=== PATIENT | female | born 1960 | race Caucasian/White ===

== ENCOUNTER 2018-04-02 13:13 | Emergency (ER) | payer SELFPAY ==
[~2018-04-02] VITALS: Ht 162.6 cm; Wt 79.0 kg
[2018-04-02 15:01] LABS: CLARITY URINE CLEAR (CLEAR); COLOR URINE YELLOW (YELLOW); KETONES URINE NEGATIVE (NEGATIVE); LEUKOCYTE ESTERASE URINE NEGATIVE (NEGATIVE); NITRITE URINE NEGATIVE (NEGATIVE); OCCULT BLOOD URINE NEGATIVE (NEGATIVE); PH URINE 5.5 (4.5-8.0); PROTEIN URINE 2+ (NEGATIVE); SPECIFIC GRAVITY URINE 1.024 (1.005-1.030); UROBILINOGEN URINE 0.2 E.U./dL (0.2-1.0)
[2018-04-02] MEDS ORDERED: FAMOTIDINE 20MG/2ML VIAL IV STA (15:56)
[2018-04-02] MEDS ORDERED: SODIUM CHLORIDE 0.9% 1,000 ML IV ONE (15:56)
[2018-04-02 17:02] LABS: EOSINOPHILS % 2.7 % (0.0-5.0); HEMATOCRIT. 36.2 % (36.0-48.0); HEMOGLOBIN. 12.4 g/dL (12.0-16.0); LYMPHOCYTES % 21.7 % (20.0-50.0); MEAN CORPUSCULAR VOLUME 87.4 fL (81.0-99.0); MEAN PLATELET VOLUME 10.4 fl (7.4-10.4); MONOCYTES % 5.8 % (2.0-8.0); NEUTROPHILS % 68.8 % (40.0-76.0); PLATELET 304 x1000/uL (130-400); RED BLOOD CELL COUNT 4.15 mill/uL (4.2-5.4); RED CELL DISTRIBUTION WIDTH 13.4 % (11.6-14.6)
[2018-04-02 17:11] LABS: CHLORIDE 100 mEq/L (98-107)
[2018-04-02 17:13] LABS: PROTHROMBIN TIME 9.9 sec (9.1-11.1)
[2018-04-02] MEDS ORDERED: CEFTRIAXONE 1 G PREMIX 50 ML IV NR (17:30)
[2018-04-02 18:21] VITALS: BP 143/77
== END 2018-04-02 19:03 | disposition home or self-care (01) ==
LOC: ER 13:13
DX: N12 Tubulo-interstitial nephritis, not specified as acute or chronic (principal); E11.65 Type 2 diabetes mellitus with hyperglycemia; D25.9 Leiomyoma of uterus, unspecified; Z98.890 Other specified postprocedural states
CPT/HCPCS: 36415; 74176; 80053; 81003; 83690; 85025; 85610; 87086; 96361; 96365; 96375; 99284; J0696; J3490; J7030